=== PATIENT | female | born 1995 | race Two or more races ===

== ENCOUNTER → 2024-08-16 | Outpatient (CLI) | payer OTHER, SELFPAY ==
[2024-08-16 13:57] LABS: HIV (1&2) Antibody Rapid Non-Reactive
[2024-08-16 14:23] LABS: Hepatitis B Surface Ab Reactive (Immune) (Immune); Hepatitis B Surface Antigen Non Reactive (Non React); Hepatitis C Antibody Non Reactive (Non React)
== END | disposition home or self-care (01) ==
PROVIDERS: PCP Family Medicine; Referring Provider Family Medicine; Visit Provider Family Medicine
DX: Z77.21 Contact with and (suspected) exposure to potentially hazardous body fluids (principal)
CPT/HCPCS: 36415; 86703; 86706; 86803; 87340

== ENCOUNTER → 2024-09-21 | Outpatient (CLI) | payer MEDICAID, SELFPAY ==
--- NOTE | 2024-09-21 14:00 | XR_ITS ---
Examination: MRI right ankle, without contrast Date and time of exam: September 21, 2024 at 1436 hours INDICATIONS: Patient fell 5 months ago with injury to the ankle, persistent ankle pain and swelling Technique: Multiple axial sagittal and coronal images of the right ankle have been obtained with the Siemens high-resolution 1.5 Anni MRI scanner. Images obtained include T2-weighted fat-suppressed sagittal sections, TR 3500, TE 46, T2 weighted coronal fat suppressed images, TR 3050, TE 84, T2-weighted transverse fat suppressed images, TR 3260, TE 63, proton density transverse images, TR 4720 TE 46, and T1 weighted coronal images, TR 560, TE 13. Findings: Intact Achilles tendon Negative for plantar fasciitis Adequate marrow signal distal tibia and distal fibula talus navicular calcaneus cuboid and cuneiforms Intact anterior posterior inferior tibiofibular ligaments Moderate to high-grade sprain posterior talofibular ligament Anterior talar fibular ligament is abnormally thickened Flexor tendons are intact with mild tendinitis posterior tibial and flexor digitorum tendons Extensor tendons are intact IMPRESSION: No occult fracture bone contusion or marrow edema Moderate to high-grade sprain posterior talofibular ligament Abnormally thickened anterior talofibular ligament, likely related to repeated stress involving this ligament Mild tendinitis posterior tibial flexor digitorum tendons
== END | disposition home or self-care (01) ==
LOC: SMRI 09-22 08:22
PROVIDERS: PCP Family Medicine; Referring Provider Nurse Practitioner Family; Visit Provider Nurse Practitioner Family
DX: S93.491D Sprain of other ligament of right ankle, subsequent encounter (principal); X58.XXXD Exposure to other specified factors, subsequent encounter; M76.821 Posterior tibial tendinitis, right leg
CPT/HCPCS: 73721